=== PATIENT | female | born 1965 | race Hispanic/Latino ===

== ENCOUNTER 2019-09-04 11:17 | Emergency (ER) | payer OTHER ==
[2019-09-04] MEDS ORDERED: IBUPROFEN 600 MG TABLET ONE (11:44)
[2019-09-04 12:15] LABS: RAPID GROUP A STREP NEGATIVE (NEGATIVE)
== END 2019-09-04 13:01 | disposition home or self-care (01) ==
LOC: EDH 11:17
DX: J11.1 Influenza due to unidentified influenza virus with other respiratory manifestations (principal); E11.9 Type 2 diabetes mellitus without complications; I10 Essential (primary) hypertension; E78.00 Pure hypercholesterolemia, unspecified; Z90.710 Acquired absence of both cervix and uterus; Z98.890 Other specified postprocedural states
CPT/HCPCS: 87804; 87880